=== PATIENT | female | born 1980 | race African-American/Black ===

== ENCOUNTER 2018-01-24 11:23 | Emergency (ER) | payer OTHER ==
[~2018-01-24] VITALS: Ht 167.6 cm; Wt 72.0 kg
[~2018-01-24 11:23] MED LIST: AMOXICILLIN500 MG PO; AMOXICILLIN875 MG PO; FLEXERIL10 MG PO; IBUPROFEN800 MG PO; NAPROSYN500 MG PO; NORCO 5/3251 TABLET PO; TRAMADOL HCL50 MG PO; ULTRAM50 MG PO
[2018-01-24] MEDS ORDERED: PEN-VEE K,VEET500 MG PO (13:04)
[2018-01-24] MEDS ORDERED: PERCOCET 5/31 TABLET PO (13:04)
[2018-01-24 13:38] VITALS: BP 138/76
== END 2018-01-24 13:39 | disposition home or self-care (01) ==
LOC: EME 11:23
DX: K08.89 Other specified disorders of teeth and supporting structures (principal)
CPT/HCPCS: 99281; 99283